=== PATIENT | female | born 1945 | race Hispanic/Latino ===

== ENCOUNTER → 2019-05-20 | Outpatient (CLI) | payer MEDICARE ==
[~2019-05-20] MED LIST: GEL DRESSING 90 GM GEL TP ONE; LIDOCAINE HCL 2% JELLY 5 ML ONE
[2019-05-20 15:02] VITALS: BP 172/41
== END ==
LOC: WHH 08:30
PROVIDERS: ATTEND Podiatrist Foot & Ankle Surgery
DX: E11.621 Type 2 diabetes mellitus with foot ulcer (principal); I25.2 Old myocardial infarction; F17.210 Nicotine dependence, cigarettes, uncomplicated; E11.51 Type 2 diabetes mellitus with diabetic peripheral angiopathy without gangrene; E11.22 Type 2 diabetes mellitus with diabetic chronic kidney disease; N18.6 End stage renal disease; I70.90 Unspecified atherosclerosis
CPT/HCPCS: 11042; 71045; 87070; 93005; A4450; G0463